=== PATIENT | male | born 1980 | race Two or more races ===

== ENCOUNTER 2022-01-31 01:05 | Emergency (ER) | payer OTHER ==
[~2022-01-31] VITALS: Ht 172.7 cm; Wt 90.7 kg
[2022-01-31] MEDS ORDERED: CENTANY30 GM TOP (02:51)
[2022-01-31] MEDS ORDERED: KETO10TA2 PO (02:51)
[2022-01-31] MEDS ORDERED: BACTRIM DS TAB1 EACH PO (02:51)
== END 2022-01-31 03:03 | disposition home or self-care (01) ==
LOC: ER 01:05
DX: L02.91 Cutaneous abscess, unspecified (principal); B96.89 Other specified bacterial agents as the cause of diseases classified elsewhere